=== PATIENT | female | born 1985 | race Hispanic/Latino ===

== ENCOUNTER 2025-07-08 07:27 | Emergency (ER) | payer SELFPAY ==
[2025-07-08] MEDS ORDERED: cefTRIAXone (ROCEPHIN) 500 MG VIAL ONE (07:54)
[2025-07-08 07:59] LABS: Pregnancy Test - Urine (BHCG) Negative (Negative); Pregu Control Background? CLEAR/WHITE (CLR/WHITE); Pregu Control Bar Appear? YES (CONTROL BAR)
[2025-07-08 08:02] LABS: Bacteria/HPF None Seen HPF (None Seen); CAUTI Indications for Culture Dysuria,urgency,freq; Glucose, Urine (Dipstick) Normal (Negative); Leukocyte 250 Leu/uL (Negative); Protein, Urine (Dipstick) Negative (Neg-Trace); RBC/HPF 0-3 HPF (0-3); Specific Gravity, Urine 1.017 (1.002-1.036)
[2025-07-08 08:03] LABS: Urine Culture Reflex No No
[2025-07-09 05:31] LABS: Chlamydia by PCR, Vaginal Swab Not Detected (NotDetected); GC by PCR, Vaginal Swab Not Detected (NotDetected)
== END 2025-07-08 09:20 | disposition home or self-care (01) ==
LOC: ERS 07:27
DX: A59.01 Trichomonal vulvovaginitis (principal); Z87.891 Personal history of nicotine dependence
CPT/HCPCS: 81001; 81025; 87480; 87491; 87510; 87591; 87660; 96372; 99283; J0696